=== PATIENT | male | born 2000 | race Caucasian/White ===

== ENCOUNTER 2023-05-09 14:51 | Outpatient (CLI) | payer BC, SELFPAY ==
--- NOTE | 2023-05-09 14:30 | DI.RAD_ITS ---
Exam(s) XR KNEE RT 3V AP,LAT,BERTO EXAM: XR KNEE RT 3V AP,LAT,BERTO CLINICAL HISTORY: RIGHT KNEE PAIN. TECHNIQUE: 2D digital imaging was performed of the right knee. Three views obtained. Merchant, AP an d lateral views were obtained. COMPARISON: No exams were available for comparison FINDINGS: BONES: No acute fracture is present. No bony destructive lesion is seen. JOINTS: The patella appears laterally subluxed on the AP view. There is a small joint effusion. SOFT TISSUE: Normal. IMPRESSION: Small joint effusion. DATA REPOSITORY: RADIATION DOSE DELIVERED:
== END 2023-05-09 14:52 | disposition home or self-care (01) ==
LOC: DIORS 14:53
PROVIDERS: Visit Provider Student in an Organized Health Care Education/Training Program
DX: M25.361 Other instability, right knee (principal); M25.461 Effusion, right knee
CPT/HCPCS: 73562

== ENCOUNTER → 2023-06-04 02:39 | Outpatient (CLI) | payer BC, SELFPAY ==
--- NOTE | 2023-06-04 08:00 | DI.MRI_ITS ---
Exam(s) MR LOWER JOINT RT WO EXAM: MR LOWER JOINT RT WO CLINICAL HISTORY: R KNEE PAIN,loose body rt knee,m23.41,instability rt knee,m25.361 TECHNIQUE: Multiplanar multisequence MRI of the knee was performed. COMPARISON: CR XR KNEE RT 3V AP,LAT,BERTO from 05/09/2023 FINDINGS: EFFUSION: There is a moderate size knee joint effusion. There is no Mariscal cyst in the popliteal cris a. MARROW:There is bone contusion signal evident in the lateral non subarticular aspect of the lateral f emoral condyle and there is also mild bone contusion signal in the most medial aspect of the patella, these findings consistent with recent lateral patellar dislocation. There is slight lateral tilting of the patella also evident. There is no evidence of patellar retinacular tear. PATELLOFEMORAL COMPARTMENT: Bone contusion findings as above consistent with recent lateral patellar dislocation. The quadriceps tendon is intact and there is no abnormal signal in the patellar ligamen t. There is no significant thinning of the retropatellar cartilage. No evidence of fissure nor signific ant chondral defect. No osteochondral defect at this level.There is mild lateral tracking of the pat joaquin. CRUCIATE LIGAMENTS: The anterior cruciate ligament is intact.The posterior cruciate ligament is intac t. MEDIAL COMPARTMENT/MEDIAL MENISCUS: There are no tears of the medial meniscus evident.. There are no chondral defects, osteochondral defects, subarticular marrow edema, nor osteophytes evid ent. MEDIAL COLLATERAL LIGAMENT: There is a small focus of fluid signal interposed between the deep and dukes perficial layers of the medial collateral ligament above the level of the knee joint consistent with sprain. There is no full-thickness tear of the MCL. LATERAL COMPARTMENT/LATERAL MENISCUS: There is no evidence of lateral meniscal tear.There are no von dral defects, osteochondral defects, subarticular marrow edema, nor osteophytes evident. ILIOTIBIAL BAND: Intact LATERAL COLLATERAL LIGAMENT COMPLEX: The fibular collateral ligament is intact. The biceps femoris t endon is intact.Popliteus muscle and tendon are intact. IMPRESSION: 1. The main findings here are evidence of recent lateral patellar dislocation including bone contusio ns in the outer aspect of the lateral femoral condyle and medial aspect of the patella as well as sli ght lateral deviation and tilting of the patella with in the intercondylar fossa. There is no eviden ce of chondromalacia of the retropatellar cartilage nor fissure nor osteochondral defect at this leve l. Although there is no evidence of patellar retinacular tear, there is a focus of fluid signal with in the medial collateral ligament consistent with sprain. However, there is no high-grade tear of th e MCL. 2. There are no cruciate ligament tears meniscal tears. 3. No degenerative changes in the joint 4. Small-moderate size joint effusion. There is no Mariscal cyst in the popliteal fossa. DATA REPOSITORY:
== END ==
PROVIDERS: Visit Provider Student in an Organized Health Care Education/Training Program
DX: S83.014A Lateral dislocation of right patella, initial encounter (principal); X58.XXXA Exposure to other specified factors, initial encounter
CPT/HCPCS: 73721

== ENCOUNTER 2023-08-04 11:54 | Outpatient (REF) | payer BC, SELFPAY ==
[2023-08-04 16:15] LABS: Source Nasal/Nares
[2023-08-04 17:00] LABS: COVID-19 PCR Negative (Negative)
== END 2023-08-04 11:55 | disposition home or self-care (01) ==
LOC: LBN 11:54
PROVIDERS: Visit Provider Physician Assistant Medical
DX: J02.9 Acute pharyngitis, unspecified (principal); R11.10 Vomiting, unspecified; Z20.822 Contact with and (suspected) exposure to COVID-19
CPT/HCPCS: 87635; 87070